=== PATIENT | female | born 1960 | race Caucasian/White ===

== ENCOUNTER → 2021-11-12 | Day surgery (SDC) | payer BC | END | disposition home or self-care (01) | LOC: JRADUS-SUR 10:38 | PROVIDERS: ATTEND Family Medicine Geriatric Medicine | PROC: 0H9T3ZX Drainage of Right Breast, Percutaneous Approach, Diagnostic (ICD-10-PCS; principal; 2021-11-12) | DX: C50.911 Malignant neoplasm of unspecified site of right female breast (principal) | CPT/HCPCS: 19083; 77065-TC; 87899; 88305-TC; 88342-TC; A4648 ==

== ENCOUNTER → 2022-02-16 | Day surgery (SDC) | payer BC | END | disposition home or self-care (01) | LOC: JRADUS-SUR 08:28 | PROVIDERS: ATTEND Surgery Surgical Oncology | PROC: BH00ZZZ Plain Radiography of Right Breast (ICD-10-PCS; principal; 2022-02-16) | DX: C50.911 Malignant neoplasm of unspecified site of right female breast (principal) | CPT/HCPCS: 19281; A4648 ==

== ENCOUNTER 2022-02-18 04:01 | Day surgery (SDC) | payer BC ==
[2022-02-12 07:12] VITALS: BMI 38.5
[2022-02-18] MEDS ORDERED: ISOSULFAN BLUE 50 MG/5 ML VIAL SQ ONE (11:06)
[2022-02-18] MEDS ORDERED: METHYLENE BLUE 50 MG/10 ML AMPUL ONE (11:06)
[2022-02-18] MEDS ORDERED: LIDOCAINE HCL 1%, 10 MG/ML (20ML VIAL) ONE (11:06)
[2022-02-18] MEDS ORDERED: methylPREDNISolone ACET (DEPO) 80 MG/1 ML VIAL ONE (11:06)
[2022-02-18] MEDS ORDERED: PROPOFOL 40 ML ONE (11:38)
[2022-02-18] MEDS ORDERED: SUCCINYLCHOLINE CHLORIDE 200 MG/10 ML SYRINGE ONE (11:39)
[2022-02-18] MEDS ORDERED: MIDAZOLAM HCL 2 MG/2 ML SINGLE DOSE VIAL ONE (11:39)
[2022-02-18] MEDS ORDERED: LIDOCAINE HCL/PF 2% SDV 5ML VIAL ONE (11:40)
[2022-02-18] MEDS ORDERED: BUPIVACAINE HCL/PF 0.25% (2.5MG/ML) 10 ML VIAL ONE (12:06)
[2022-02-18] MEDS ORDERED: ceFAZolin SODIUM 1 GM VIAL IVPB ONE (12:19)
[2022-02-18] MEDS ORDERED: ONDANSETRON 4 MG/2 ML VIAL ONE (12:21)
[2022-02-18] MEDS ORDERED: KETOROLAC TROMETHAMINE 30 MG/1 ML VIAL ONE (12:21)
[2022-02-18] MEDS ORDERED: DEXAMETHASONE SOD PHOSPHATE 4 MG/1 ML VIAL ONE (12:21)
[2022-02-18] MEDS ORDERED: BUPIVACAINE HCL/PF 0.25% (2.5MG/ML) 10 ML VIAL IJ ONE (13:39)
[2022-02-18] MEDS ORDERED: BENZOIN/ALOE VERA/STORAX/TOLU 58 ML BOTTLE ONE (13:50)
[2022-02-18] MEDS ORDERED: ACETAMINOPHEN 325 MG TABLET (FP) PO PRN (14:05)
[2022-02-18] MEDS ORDERED: oxyCODONE HCL 5 MG TABLET PO PRN ×2 (14:05)
[2022-02-18] MEDS ORDERED: PROMETHAZINE HCL 25 MG/1 ML VIAL IVPUSH PRN (14:05)
[2022-02-18] MEDS ORDERED: ONDANSETRON 4 MG/2 ML VIAL IVPUSH PRN (14:05)
[2022-02-18 15:17] VITALS: RESP 20
[2022-02-18 15:52] VITALS: BP 135/71; PULSE 75; TEMP 98
== END 2022-02-18 16:01 | disposition home or self-care (01) ==
LOC: JASU-SURG 04:01
PROVIDERS: ATTEND Surgery Surgical Oncology
PROC: C71L1ZZ Planar Nuclear Medicine Imaging of Upper Chest Lymphatics using Technetium 99m (Tc-99m) (ICD-10-PCS; 2022-02-18)
PROC: 0HBT0ZZ Excision of Right Breast, Open Approach (ICD-10-PCS; principal; 2022-02-18 12:00)
PROC: 07B50ZX Excision of Right Axillary Lymphatic, Open Approach, Diagnostic (ICD-10-PCS; 2022-02-18 12:00)
DX: C50.911 Malignant neoplasm of unspecified site of right female breast (principal)
CPT/HCPCS: 76098-TC-FY; 78195-TC; 88307-TC; 94760; A9541; Q9968

== ENCOUNTER 2022-07-10 08:32 | Emergency (ER) | payer BC ==
[2022-07-10 08:45] VITALS: BP 183/83; PULSE 71; RESP 16; TEMP 97.8; BMI 37.0
[2022-07-10] MEDS ORDERED: predniSONE 20 MG TABLET (UD) PO ONE (09:00)
[2022-07-10] MEDS ORDERED: predniSONE 20 MG TABLET (UD) ONE (09:08)
== END 2022-07-10 09:25 | disposition home or self-care (01) ==
LOC: JERFT 08:32
DX: H02.844 Edema of left upper eyelid (principal); R22.0 Localized swelling, mass and lump, head; L53.9 Erythematous condition, unspecified; T78.40XA Allergy, unspecified, initial encounter
CPT/HCPCS: 99283-25